=== PATIENT | male | born 1945 | race Caucasian/White ===

== ENCOUNTER → 2018-01-23 | Outpatient (CLI) | payer MEDICARE, BC ==
--- NOTE | 2018-01-23 15:40 | XR ---
Left hip HISTORY: Status post left hip arthroplasty 2 views of the left hip on 3 images correlated prior exam 12/02/2015 There is been interval change in patient's left hip arthroplasty. Heterotopic new bone is present abo ut the left hip. There is anatomic alignment. No fracture or dislocation. IMPRESSION: Postop follow-up
== END ==
LOC: RADXRYALE 13:41
PROVIDERS: ATTEND Orthopaedic Surgery
DX: T84.52XD Infection and inflammatory reaction due to internal left hip prosthesis, subsequent encounter (principal); Z98.890 Other specified postprocedural states
CPT/HCPCS: 73502

== ENCOUNTER → 2018-07-17 | Outpatient (CLI) | payer MEDICARE, BC ==
--- NOTE | 2018-07-18 09:10 | XR ---
EXAMINATION TYPE: XR lumbosacral spine min 4V DATE OF EXAM: 07/17/2018 COMPARISON: None HISTORY: Low back pain TECHNIQUE: Five-view lumbar spine FINDINGS: There 5 lumbar-type vertebral bodies. The pedicles are intact. Scoliosis is present. Degene rative disc changes are present. Some spurring is noted. Mild facet degenerative changes present diff usely. There is loss of disc height L2-3 through L4-5. Mild narrowing of the disc height at L1-2 is present. The L5-S1 disc height appears preserved. Vacuum disc phenomenon is present L3-4 L4-5. IMPRESSION: 1. Degenerative disc changes within the mid lumbar spine with loss of disc height in some vacuum dis c phenomenon. 2. Mild diffuse facet degenerative changes. 3. Scoliosis. 4. Spondylosis.
--- NOTE | 2018-07-18 09:12 | XR ---
EXAMINATION TYPE: XR Hip Bilateral and AP pelvis DATE OF EXAM: 07/17/2018 COMPARISON: 01/23/2018 left hip HISTORY: Low back pain left hip pain TECHNIQUE: AP pelvis is obtained. Bilateral hips are examined in 2 projections each. FINDINGS: There is a left hip prosthesis. No acute fractures evident. Right femoral head articulates with the acetabulum. Subchondral cyst may be within the superior femor al neck. Mild narrowing of the joint space is present. Pelvis appears intact. IMPRESSION: 1. No acute osseous abnormality. 2. Mild degenerative changes right hip joint space.
== END | disposition home or self-care (01) ==
LOC: RADXRYALE 15:57
PROVIDERS: ATTEND Orthopaedic Surgery
DX: M51.36 Other intervertebral disc degeneration, lumbar region (principal); M47.817 Spondylosis without myelopathy or radiculopathy, lumbosacral region; M41.86 Other forms of scoliosis, lumbar region; M16.11 Unilateral primary osteoarthritis, right hip
CPT/HCPCS: 72110; 73521

== ENCOUNTER → 2019-02-18 | Outpatient (CLI) | payer MEDICARE, BC ==
--- NOTE | 2019-02-19 07:42 | US ---
EXAMINATION TYPE: US kidneys/renal and bladder DATE OF EXAM: 02/18/2019 COMPARISON: MRI lumbar spine 2010. CLINICAL HISTORY: R31.9 Hematuria. Hematuria. EXAM MEASUREMENTS: Right Kidney: 10.0 x 5.3 x 4.5 cm Left Kidney: 9.4 x 5.1 x 5.4 cm Limited due to body habitus. Right Kidney: No hydronephrosis or masses seen Left Kidney: Hypoechoic area seen medially measurin.7 x 2.1 x 1.8 cm. Bladder: Appears to be anechoic. Bilateral Jets seen: No Exam suboptimal due to patient's large body habitus. No hydronephrosis identified bilaterally. 1.8 cm round hypoechoic to anechoic lesion upper pole left kidney with increased through transmission favor simple thin-walled cyst. Scanning of right kidney shows adjacent heterogeneous hyperechoic liver. Bl adder not greatly distended thus suboptimally evaluated. IMPRESSION: Suboptimal study without cause of hematuria identified. Follow-up multiphase contrast-enh anced CT is advised if symptoms persist.
== END | disposition home or self-care (01) ==
LOC: RADUSMAIN 18:01
PROVIDERS: ATTEND Urology
DX: R31.9 Hematuria, unspecified (principal)
CPT/HCPCS: 76770

== ENCOUNTER → 2019-02-27 | Outpatient (CLI) | payer MEDICARE, BC ==
--- NOTE | 2019-02-27 18:28 | CT ---
EXAMINATION TYPE: CT abdomen pelvis wo con DATE OF EXAM: 02/27/2019 COMPARISON: Ultrasound 02/18/2019 HISTORY: hematuria X [address] DLP: 1114.3 mGycm Automated exposure control for dose reduction was used. TECHNIQUE: Helical acquisition of images was performed from the lung bases through the pelvis. FINDINGS: LUNG BASES: The heart is prominent in size. There are basilar subsegmental changes typical atelectasi s. Interlobular septal thickening suggestive of chronic interstitial lung disease such as fibrosis. I ncidental note is made of a calcified granuloma in the right lower lobe axial image 20. Calcified lym ph node in the periaortic region on image 21. LIVER/GB: No significant abnormality is appreciated. PANCREAS: No significant abnormality is seen. SPLEEN: Splenic granuloma noted. ADRENALS: No significant abnormality is seen. KIDNEYS: No renal calcifications or hydronephrosis. There is a 2.2 cm hypodense lesion involving the anterior mid cortex of the left kidney measuring 5 Hounsfield units compatible with a simple Bosniak classification 1 cyst. There is lobulation to the kidneys may suggest a degree of chronic underlying medical renal disease. The bladder is homogeneous. No calcifications or definitive wall thickening by noncontrast technique. ADENOPATHY: None visualized. OSSEOUS STRUCTURES: Is postsurgical change involving the left hip which does result in severe artifa ct limits portions of evaluation of the pelvis. Severe multilevel degenerative disc disease with vacu um disc is noted. Soft tissue ossification adjacent to the iliac bone likely postsurgical. Could been the basis of remote trauma. BOWEL: Changes of diverticulosis with no CT evidence of diverticulitis. Bowel gas pattern nonspecifi c with no obstruction. OTHER: Aorta of normal caliber. Fat-containing bilateral inguinal hernias noted. Mild atherosclerotic change of the vasculature. Suspect bilateral hydroceles within the scrotal sac. Incidental note is m shemar of asymmetric atrophy of the left psoas muscle. IMPRESSION: 1. No hydronephrosis or nephrolithiasis. 2. Benign-appearing simple cyst Bosniak classification 1 left kidney measuring 2.2 cm and 5 Hounsfiel d units. 3. Correlate for chronic interstitial lung disease. 4. Diverticulosis. 5. Bilateral hydroceles within the scrotal sac.
== END | disposition home or self-care (01) ==
LOC: RADCTMAIN 16:46
PROVIDERS: ATTEND Urology
DX: R31.9 Hematuria, unspecified (principal); N28.1 Cyst of kidney, acquired; K57.90 Diverticulosis of intestine, part unspecified, without perforation or abscess without bleeding
CPT/HCPCS: 74176

== ENCOUNTER 2019-09-25 09:17 | Emergency (ER) | payer MEDICARE, BC ==
[2019-09-25 09:35] VITALS: RESP 18; TEMP 98.2
[2019-09-25] MEDS ORDERED: LISINOPRIL 10 MG TAB PO STA (09:58)
[2019-09-25] MEDS ORDERED: METOPROLOL SUCCINATE (ER) 25 MG TAB.ER.24H PO STA (09:58)
[2019-09-25] MEDS ORDERED: OXYMETAZOLINE 0.05% NASL SPRAY 1 SPRAY BOTTLE NASAL STA (09:59)
--- NOTE | 2019-09-25 10:07 | ED ---
General Adult HPI - General Chief complaint: ENT Stated complaint: Nose bleed Time Seen by Provider: 09/25/19 09:37 Source: patient, RN notes reviewed Mode of arrival: ambulatory Limitations: no limitations - History of Present Illness Initial comments: 74-year-old male presents to the emergency department for a nosebleed. Patient reports that this nosebleed started approximately 4 AM this morning states that he could not get it to stop so he called the ambulance. States is soon as he called EMS the bleeding ceased. Patient denies any lightheadedness. Patient does take Xarelto, denies taking Coumadin. Patient states that he did not take his morning blood pressure medications today. He takes lisinopril and metoprolol in the morning.Patient has no other complaints at this time including shortness of breath, chest pain, abdominal pain, nausea or vomiting, headache, or visual changes. - Related Data Home Medications Medication Instructions Recorded Confirmed Cetirizine HCl [Zyrtec] 10 mg PO HS 09/25/19 09/25/19 DULoxetine HCL [Cymbalta] 30 mg PO HS 09/25/19 09/25/19 Diltiazem HCl [Diltiazem HCl 24Hr 240 mg PO DAILY 09/25/19 09/25/19 ER] Ginkgo Biloba [place] Extract [Ginkgo] 60 mg PO DAILY 09/25/19 09/25/19 Lisinopril [Zestril] 10 mg PO DAILY 09/25/19 09/25/19 Magnesium Oxide 400 mg PO W/BRKFST 09/25/19 09/25/19 Metoprolol Tartrate [Lopressor] 25 mg PO BID 09/25/19 09/25/19 Pantoprazole Sodium [Protonix] 40 mg PO HS 09/25/19 09/25/19 Rivaroxaban [Xarelto] 20 mg PO HS 09/25/19 09/25/19 Previous Rx's Medication Instructions Recorded Ferrous Sulfate [Iron (65 MG 325 mg PO DAILY #30 tab 09/08/14 Elemental)] Allergies Allergy/AdvReac Type Severity Reaction Status Date / Time No Known Allergies Allergy Verified 09/25/19 10:36 Review of Systems ROS Statement: Those systems with pertinent positive or pertinent negative responses have been documented in the HPI. ROS Other: All systems not noted in ROS Statement are negative. Past Medical History Past Medical History: Atrial Fibrillation, Hypertension, Osteoarthritis (OA) Additional Past Medical History / Comment(s): 11/09/14 I&D L hip. Other HX: Seroma L hip, chronic backpain, neuropathy bilateral feet, chronic bradycardia, gout, GLAUCOMA bilaterally History of Any Multi-Drug Resistant Organisms: None Reported Past Surgical History: Joint Replacement, Orthopedic Surgery Additional Past Surgical History / Comment(s): 11/09/14 I&D L hip. Other SX: 10/22/14 I&D L hip, TOTAL LEFT HIP ARTHOPLASTY 08/17/14, LEFT HIP REVISION 09/03/14 Past Anesthesia/Blood Transfusion Reactions: No Reported Reaction Additional Past Anesthesia/Blood Transfusion Reaction / Comment(s): HAS ONLY HAD IV SEDATION. Past Psychological History: Anxiety Smoking Status: Former smoker Past Alcohol Use History: None Reported Past Drug Use History: None Reported - Past Family History Father Family Medical History: CVA/TIA General Exam Limitations: no limitations General appearance: alert, in no apparent distress Head exam: Present: atraumatic, normocephalic, normal inspection Eye exam: Present: normal appearance, PERRL, EOMI. Absent: scleral icterus, conjunctival injection, periorbital swelling ENT exam: Present: normal exam, normal oropharynx (Bleeding has ceased at this time), mucous membranes moist, TM's normal bilaterally, normal external ear exam Neck exam: Present: normal inspection, full ROM. Absent: tenderness, meningismus, lymphadenopathy Respiratory exam: Present: normal lung sounds bilaterally. Absent: respiratory distress, wheezes, rales, rhonchi, stridor Cardiovascular Exam: Present: regular rate, normal rhythm, normal heart sounds. Absent: systolic murmur, diastolic murmur, rubs, gallop, clicks Neurological exam: Present: alert Course Vital Signs 09/25/19 09:30 Temperature 98.2 F Pulse Rate 72 Respiratory 18 Rate Blood Pressure 158/106 O2 Sat by Pulse 98 Oximetry Medical Decision Making - Medical Decision Making Vitals are stable. Patient's eye with hypertensive blood pressure 158/106. He did not take his morning medications for blood pressure. He was therefore given his morning metoprolol and lisinopril upon arrival. Epistaxis is controlled. There is no bleeding. Afrin was applied and nose was clamped for 15 minutes to prevent any rebleeding. Patient ambulated without any new bleeding. Patient will follow-up with ENT. He will return here for any worsening symptoms. He also follow up with his doctor for blood pressure. Disposition Clinical Impression: Epistaxis Disposition: HOME SELF-CARE Condition: Good Instructions (If sedation given, give patient instructions): Nosebleed (ED) Additional Instructions: Take your medications as directed for blood pressure. You already received your morning lisinopril and metoprolol. If bleeding starts again spray 2 sprays of Afrin in each nostril and clamp for 15 minutes. If this does not stop the bleeding repeat this process once more. If bleeding will still not stop then return to the emergency room. Otherwise follow-up with ENT. Is patient prescribed a controlled substance at d/c from ED?: No Referrals: Ileana Alatorre MD [Primary Care Provider] - 1-2 days Aryan Kahn MD [STAFF PHYSICIAN] - 1-2 days Time of Disposition: 10:47
[2019-09-25 11:07] VITALS: BP 180/99; PULSE 73
== END 2019-09-25 11:07 | disposition home or self-care (01) ==
LOC: EC 09:17
DX: R04.0 Epistaxis (principal); I10 Essential (primary) hypertension; I48.91 Unspecified atrial fibrillation; M19.90 Unspecified osteoarthritis, unspecified site; H40.9 Unspecified glaucoma; F41.9 Anxiety disorder, unspecified; Z79.899 Other long term (current) drug therapy; Z87.891 Personal history of nicotine dependence; Z96.652 Presence of left artificial knee joint
CPT/HCPCS: 99283

== ENCOUNTER 2023-07-30 18:59 | Inpatient (IN) | payer MEDICARE, OTHER ==
[2023-07-30] MEDS: SODIUM CHLORIDE 0.9% 500 ML 500 ML IV STA (21:13)
[2023-07-30 21:24] LABS: Basophils % (A) 0 %; Eosinophils # (A) 0.3 k/uL (0-0.7); Eosinophils % (A) 4 %; HCT 40.2 % (39.0-53.0); Lymphocytes # (A) 0.7 k/uL (1.0-4.8); Lymphocytes % (A) 9 %; MCH 29.9 pg (25.0-35.0); MCHC 32.4 g/dL (31.0-37.0); MCV 92.3 fL (80.0-100.0); Mean Platelet Volume 7.5; Monocytes # (A) 0.4 k/uL (0-1.0); Monocytes % (A) 5 %; Neutrophils # (A) 6.5 k/uL (1.3-7.7); Neutrophils % (A) 80 %; Platelet Count 295 k/uL (150-450); RBC 4.35 m/uL (4.30-5.90); RDW 14.5 % (11.5-15.5); WBC 8.2 k/uL (3.8-10.6)
[2023-07-30 21:32] LABS: INR 1.5 (<1.2); Partial Thromboplastin Time 35.3 sec (22.0-30.0); Prothrombin Time 15.6 sec (10.0-12.5)
[2023-07-30 21:45] LABS: ALT 18 U/L (4-49); AST 34 U/L (17-59); African American GFR (CKD) 64 (>60 ml/min/1.73 sqM); Albumin 3.3 g/dL (3.5-5.0); Alkaline Phosphatase 125 U/L (38-126); Anion Gap 8 mmol/L; Blood Urea Nitrogen 20 mg/dL (9-20); Carbon Dioxide 28 mmol/L (22-30); Chloride 100 mmol/L (98-107); Glucose 83 mg/dL (74-99); Magnesium 1.2 mg/dL (1.6-2.3); Non-African American GFR(CKD) 55 (>60 ml/min/1.73 sqM); Sodium 136 mmol/L (137-145); Total Bilirubin 0.6 mg/dL (0.2-1.3); Total Protein 7.5 g/dL (6.3-8.2)
[2023-07-30 21:51] LABS: Vancomycin,Random 36.7 ug/mL
--- NOTE | 2023-07-30 22:19 | ED ---
General Adult HPI - General Chief complaint: Recheck/Abnormal Lab/Rx Stated complaint: Abn labs-toxic levels Time Seen by Provider: 07/30/23 20:28 Source: patient, RN notes reviewed, old records reviewed Mode of arrival: wheelchair Limitations: no limitations - History of Present Illness Initial comments: 78-year-old male presenting for evaluation of weakness. Patient had recent admission to outside hospital for treatment of pneumonia as well as ulcer on the right foot which was diagnosed as osteomyelitis. He was placed onto IV antibiotics and has been home for approximately 1 week. He is currently on Vanco and daughter believes Invanz. Daughter has noted increased weakness and was told by home care nurse that his vancomycin level was elevated. No fever. Cough and dyspnea have improved. No abdominal pain or chest pain. - Related Data Home Medications Medication Instructions Recorded Confirmed DULoxetine HCL [Cymbalta] 30 mg PO HS 09/25/19 07/30/23 Rivaroxaban [Xarelto] 20 mg PO HS 09/25/19 07/30/23 Albuterol Inhaler [Ventolin Hfa 2 puff INHALATION RT-Q6H PRN 07/30/23 07/30/23 Inhaler] Albuterol Nebulized [Ventolin 2.5 mg INHALATION RT-Q6H PRN 07/30/23 07/30/23 Nebulized] Atorvastatin [Lipitor] 20 mg PO HS 07/30/23 07/30/23 Dakin's Solution 0.25% 1 applic TOPICAL DAILY 07/30/23 07/30/23 Ertapenem [INVanz] 1 dose IVPB DIRECTED 07/30/23 07/30/23 L.rhamnosus/B.animalis(Lactis) 1 cap PO DAILY 07/30/23 07/30/23 [[facility] 3B Cfu Cp] Levothyroxine Sodium [Synthroid] 50 mcg PO DAILY 07/30/23 07/30/23 Metoprolol Succinate (ER) [Toprol 50 mg PO BID 07/30/23 07/30/23 Xl] Pantoprazole [Protonix] 40 mg PO DAILY 07/30/23 07/30/23 Triamcinolone 0.1% Cream [Kenalog 1 applicatio TOPICAL DAILY PRN 07/30/23 07/30/23 0.1% Cream] Vancomycin 1 dose IVPB DIRECTED 07/30/23 07/30/23 allopurinoL [Zyloprim] 100 mg PO DAILY 07/30/23 07/30/23 amLODIPine [Norvasc] 5 mg PO DAILY 07/30/23 07/30/23 dilTIAZem HCL [dilTIAZem HCL 24Hr 120 mg PO DAILY 07/30/23 07/30/23 ER (CD)] diphenhydrAMINE [Benadryl] 25 mg PO Q6H PRN 07/30/23 07/30/23 lisinopriL [Zestril] 5 mg PO HS 07/30/23 07/30/23 oxyCODONE HCL [oxyCODONE HCL (IR)] 20 mg PO TID 07/30/23 07/30/23 Previous Rx's Medication Instructions Recorded Ferrous Sulfate [Iron (65 MG 325 mg PO DAILY #30 tab 09/08/14 Elemental)] Allergies Allergy/AdvReac Type Severity Reaction Status Date / Time No Known Allergies Allergy Verified 07/30/23 19:12 Review of Systems ROS Statement: Those systems with pertinent positive or pertinent negative responses have been documented in the HPI. ROS Other: All systems not noted in ROS Statement are negative. Past Medical History Past Medical History: Atrial Fibrillation, Hypertension, Osteoarthritis (OA) Additional Past Medical History / Comment(s): 11/09/14 I&D L hip. Other HX: Seroma L hip, chronic backpain, neuropathy bilateral feet, chronic bradycardia, gout, GLAUCOMA bilaterally History of Any Multi-Drug Resistant Organisms: None Reported Past Surgical History: Joint Replacement, Orthopedic Surgery Additional Past Surgical History / Comment(s): 11/09/14 I&D L hip. Other SX: 10/22/14 I&D L hip, TOTAL LEFT HIP ARTHOPLASTY 08/17/14, LEFT HIP REVISION 09/03/14 Past Anesthesia/Blood Transfusion Reactions: No Reported Reaction Additional Past Anesthesia/Blood Transfusion Reaction / Comment(s): HAS ONLY HAD IV SEDATION. Past Psychological History: Anxiety Past Alcohol Use History: None Reported Past Drug Use History: None Reported - Past Family History Father Family Medical History: CVA/TIA General Exam Limitations: no limitations General appearance: alert, in no apparent distress Head exam: Present: atraumatic, normocephalic Eye exam: Present: normal appearance, PERRL Neck exam: Present: normal inspection. Absent: tenderness, meningismus Respiratory exam: Present: normal lung sounds bilaterally. Absent: respiratory distress, wheezes Cardiovascular Exam: Present: regular rate, irregular rhythm GI/Abdominal exam: Present: soft. Absent: distended, tenderness Extremities exam: Present: normal capillary refill, other (Ulceration to the sole of the right foot without surrounding erythema, no purulence) Neurological exam: Present: alert, oriented X3 Psychiatric exam: Present: normal affect, normal mood Skin exam: Present: warm, dry, intact. Absent: cyanosis, diaphoretic Course Vital Signs 07/30/23 19:10 Temperature 98.7 F Pulse Rate 71 Respiratory 16 Rate Blood Pressure 134/67 O2 Sat by Pulse 97 Oximetry Medical Decision Making - Medical Decision Making Was pt. sent in by a medical professional or institution (, PA, T[employer], urgent care, hospital, or shelter...) When possible be specific @ -No Did you speak to anyone other than the patient for history (EMS, parent, family, police, friend...)? What history was obtained from this source @ -Patient's daughter gives detailed history. Did you review nursing and triage notes (agree or disagree)? Why? @ -I reviewed and agree with nursing and triage notes Were old charts reviewed (outside hosp., previous admission, EMS record, old EKG, old radiological studies, urgent care reports/EKG's, shelter records)? Report findings @ -No old charts were reviewed Differential Weakness: Hypoglycemia, shock, sepsis, hyponatremia, anemia, infection, AL, ETOH, adverse medicine reaction, overdose, stroke, this is not meant to be an all-inclusive list. EKG interpreted by me (3pts min.). @EKG: Atrial fibrillation rate of 77, QRS duration 99, QTc [address] segment elevation. X-rays interpreted by me (1pt min.). @ -Chest x-ray showing residual left lower lobe infiltrate, recent diagnosis of pneumonia CT interpreted by me (1pt min.). @ -None done U/S interpreted by me (1pt. min.). @ -None done What testing was considered but not performed or refused? (CT, X-rays, U/S, labs)? Why? @ -None What meds were considered but not given or refused? Why? @ -None Did you discuss the management of the patient with other professionals (professionals i.e. , PA, T[employer], lab, RT, psych nurse, social services designee, composing machine operator/tender, teacher, loans officer, rn case manager hospice)? Give summary @EMH Was smoking cessation discussed for >3mins.? @ -No Was critical care preformed (if so, how long)? @ -No Were there social determinants of health that impacted care today? How? (Silvana elessness, low income, unemployed, alcoholism, drug addiction, transportation, low edu. Level, literacy, decrease access to med. care, skilled nursing, rehab)? @ -No Was there de-escalation of care discussed even if they declined (Discuss DNR or withdrawal of care, Hospice)? DNR status @ -No What co-morbidities impacted this encounter? (DM, HTN, Smoking, COPD, CAD, Cancer, CVA, ARF, Chemo, Hep., AIDS, mental health diagnosis, sleep apnea, morbid obesity)? @ -[Chronic kidney infection, nonhealing wound right foot, atrial fibrillation Was patient admitted / discharged? Hospital course, mention meds given and route, prescriptions, significant lab abnormalities, going to OR and other pertinent info. @ -78-year-old male with weakness. Currently being treated for osteomyelitis. The ulcer on his right foot does not appear infected currently. The daughter is requesting second opinion from infectious disease regarding the diagnosis of osteomyelitis. The patient has no specific complaints himself. He has a normal white blood cell count, stable hemoglobin, normal CMP, negative lactic acid, random vancomycin level is below 40. Urinalysis pending. Patient given IV fluids and does have some improvement. He will be monitored overnight for dehydration and reevaluation. Infectious disease placed on consult. Undiagnosed new problem with uncertain prognosis? @ -[No Drug Therapy requiring intensive monitoring for toxicity (Heparin, Nitro, Insulin, Cardizem)? @ -No Were any procedures done? @ -No Diagnosis/symptom? @ -[Weakness, dehydration, hypomagnesemia Acute, or Chronic, or Acute on Chronic? @Acute Uncomplicated (without systemic symptoms) or Complicated (systemic symptoms)? @ -Default Side effects of treatment? @ -No Exacerbation, Progression, or Severe Exacerbation? @ -No Poses a threat to life or bodily function? How? (Chest pain, [place], AL, pneumonia, PE, COPD, DKA, ARF, appy, cholecystitis, CVA, Diverticulitis, Homicidal, Suicidal, threat to staff... and all critical care pts) @ -[Low risk at this time - Lab Data Result diagrams: 07/30/23 21:08 07/30/23 21:08 Lab Results 07/30/23 07/30/23 07/30/23 Range/Units 21:08 21:08 21:08 WBC 8.2 (3.8-10.6) k/uL RBC 4.35 (4.30-5.90) m/uL Hgb 13.0 (13.0-17.5) gm/dL Hct 40.2 (39.0-53.0) % MCV 92.3 (80.0-100.0) fL MCH 29.9 (25.0-35.0) pg MCHC 32.4 (31.0-37.0) g/dL RDW 14.5 (11.5-15.5) % Plt Count 295 (150-450) k/uL MPV 7.5 Neutrophils % 80 % Lymphocytes % 9 % Monocytes % 5 % Eosinophils % 4 % Basophils % 0 % Neutrophils # 6.5 (1.3-7.7) k/uL Lymphocytes # 0.7 L (1.0-4.8) k/uL Monocytes # 0.4 (0-1.0) k/uL Eosinophils # 0.3 (0-0.7) k/uL Basophils # 0.0 (0-0.2) k/uL PT 15.6 H (10.0-12.5) sec INR 1.5 H (<1.2) APTT 35.3 H (22.0-30.0) sec Sodium 136 L (137-145) mmol/L Potassium 4.0 (3.5-5.1) mmol/L Chloride 100 (98-107) mmol/L Carbon Dioxide 28 (22-30) mmol/L Anion Gap 8 mmol/L BUN 20 (9-20) mg/dL Creatinine 1.24 (0.66-1.25) mg/dL Est GFR (CKD-EPI)AfAm 64 (>60 ml/min/1.73 sqM) Est GFR (CKD-EPI)NonAf 55 (>60 ml/min/1.73 sqM) Glucose 83 (74-99) mg/dL Plasma Lactic Acid Alonzo (0.7-2.0) mmol/L Calcium 8.0 L (8.4-10.2) mg/dL Magnesium 1.2 L (1.6-2.3) mg/dL Total Bilirubin 0.6 (0.2-1.3) mg/dL AST 34 (17-59) U/L ALT 18 (4-49) U/L Alkaline Phosphatase 125 (38-126) U/L Troponin I (0.000-0.034) ng/mL Total Protein 7.5 (6.3-8.2) g/dL Albumin 3.3 L (3.5-5.0) g/dL Random Vancomycin 36.7 ug/mL 07/30/23 07/30/23 Range/Units 21:08 21:08 WBC (3.8-10.6) k/uL RBC (4.30-5.90) m/uL Hgb (13.0-17.5) gm/dL Hct (39.0-53.0) % MCV (80.0-100.0) fL MCH (25.0-35.0) pg MCHC (31.0-37.0) g/dL RDW (11.5-15.5) % Plt Count (150-450) k/uL MPV Neutrophils % % Lymphocytes % % Monocytes % % Eosinophils % % Basophils % % Neutrophils # (1.3-7.7) k/uL Lymphocytes # (1.0-4.8) k/uL Monocytes # (0-1.0) k/uL Eosinophils # (0-0.7) k/uL Basophils # (0-0.2) k/uL PT (10.0-12.5) sec INR (<1.2) APTT (22.0-30.0) sec Sodium (137-145) mmol/L Potassium (3.5-5.1) mmol/L Chloride (98-107) mmol/L Carbon Dioxide (22-30) mmol/L Anion Gap mmol/L BUN (9-20) mg/dL Creatinine (0.66-1.25) mg/dL Est GFR (CKD-EPI)AfAm (>60 ml/min/1.73 sqM) Est GFR (CKD-EPI)NonAf (>60 ml/min/1.73 sqM) Glucose (74-99) mg/dL Plasma Lactic Acid Alonzo 1.2 (0.7-2.0) mmol/L Calcium (8.4-10.2) mg/dL Magnesium (1.6-2.3) mg/dL Total Bilirubin (0.2-1.3) mg/dL AST (17-59) U/L ALT (4-49) U/L Alkaline Phosphatase (38-126) U/L Troponin I <0.012 (0.000-0.034) ng/mL Total Protein (6.3-8.2) g/dL Albumin (3.5-5.0) g/dL Random Vancomycin ug/mL Disposition Clinical Impression: Weakness, Dehydration, Hypomagnesemia Disposition: ADMITTED IP TO THIS HOSP Condition: Stable Is patient prescribed a controlled substance at d/c from ED?: No Referrals: Ileana Alatorre MD [Primary Care Provider] - 1-2 days Time of Disposition: 22:32
[2023-07-30] MEDS ORDERED: ACETAMINOPHEN TAB 325 MG TAB PO PRN (22:27)
[2023-07-30] MEDS ORDERED: NALOXONE 0.4 MG/ML 1 ML VIAL IV PRN (22:27)
--- NOTE | 2023-07-30 22:35 | XR ---
EXAMINATION TYPE: XR chest 2V DATE OF EXAM: 07/30/2023 8:55 PM CLINICAL INDICATION:Male, 78 years old with history of Weakness; [facility] COMPARISON: None TECHNIQUE: XR chest 2V. Frontal and lateral views of the chest.. FINDINGS: Exam limited by patient body habitus and underpenetration. Cardiomediastinal silhouette appears enlarged. There is mild tracheal bowing towards the right. Lung volumes are low, with associated mild bibasilar atelectasis and accentuation of the lung marking s nevertheless mild central vascular congestion is suggested. Additionally, there may be superimposed airspace disease in the left mid to lower lung zones. Left costophrenic angle is not well-defined. N o pneumothorax evident. Osseous structures show no acute abnormality. Mild/moderate diffuse degenerative changes. Old fractur e deformity of the mid to distal left clavicle. IMPRESSION: 1. Cardiomegaly with low lung volumes and likely mild pulmonary vascular congestion. 2. Additional airspace disease suggested in the left mid to lower lung zones, with suspected small l eft pleural effusion. Follow-up is advised.
[2023-07-30] MEDS: MAGNESIUM SULFATE-D5W PMX 1 GM in DEXTROSE/WATER 1 100ML.BAG IVPB SCH (22:41)
[2023-07-30] MEDS: SODIUM CHLORIDE 0.9% 1,000 ML IV SCH (23:17)
[2023-07-31 01:00] LABS: Appearance,Urine Clear (Clear); Bilirubin,Urine Negative (Negative); Blood,Urine Negative (Negative); Color,Urine Colorless; Glucose,Urine (UA) Negative (Negative); Ketones,Urine Negative (Negative); Leukocyte Esterase,Urine Trace (Negative); Nitrite,Urine Negative (Negative); Protein,Urine Negative (Negative); RBC,Urine 1 /hpf (0-5); Specific Gravity,Urine 1.008 (1.001-1.035); Squamous Epithelial Cell,Urine <1 /hpf (0-4); Urobilinogen,Urine <2.0 mg/dL (<2.0); WBC,Urine 4 /hpf (0-5)
[2023-07-31] MEDS ORDERED: ALBUTEROL NEBULIZED 2.5 MG/3 ML INHALATION PRN (10:32)
[2023-07-31] MEDS: LEVOTHYROXINE 50 MCG TAB PO SCH (11:13)
[2023-07-31] MEDS: MAGNESIUM SULFATE-D5W PMX 1 GM in DEXTROSE/WATER 1 100ML.BAG IVPB SCH (11:13)
[2023-07-31] MEDS: allopurinoL 100 MG TAB PO SCH (11:13)
[2023-07-31] MEDS: PANTOPRAZOLE 40 MG TABLET PO SCH (11:13)
[2023-07-31] MEDS: DILTIAZEM CD 120 MG CAP.ER.24H PO SCH (11:13)
[2023-07-31] MEDS: METOPROLOL SUCCINATE (ER) 50 MG TAB.ER.24H PO SCH (11:13)
[2023-07-31] MEDS ORDERED: VANCOMYCIN IV PER PHARMACY 1 EACH MISC MISCELLANE PRN ×2 (16:49→18:14)
[2023-07-31 16:54] LABS: Magnesium 2.1 mg/dL (1.6-2.3)
--- NOTE | 2023-07-31 17:09 | CT ---
EXAMINATION TYPE: CT brain wo con CT DLP: 1236.4 mGycm, Automated exposure control for dose reduction was used. DATE OF EXAM: 07/31/2023 4:41 PM COMPARISON: None. CLINICAL INDICATION:Male, 78 years old with history of Altered mentation, AMS TECHNIQUE: Brain: Axial CT images of the brain were obtained with coronal and sagittal reformats created and rev iewed. Contrast used: None. Oral contrast used: None. FINDINGS: Brain: Extra-axial spaces: No abnormal extra-axial fluid collections. Ventricular system: Dilatation in proportion to cerebral atrophy. Cerebral parenchyma: Cerebral atrophy. No acute intraparenchymal hemorrhage or mass effect. The aparicio -white junction is well differentiated. Scattered hypoattenuating areas are seen within the white mat ter. Cerebellum: Unremarkable. Mass effect: No evidence of midline shift. Intracranial vasculature: Atherosclerotic calcifications of the intracranial vessels. Soft tissues: Normal. Calvarium/osseous structures: No depressed skull fracture. Paranasal sinuses and mastoid air cells: Mild scattered paranasal sinus disease most pronounced in th e right maxillary sinus. Visualized orbits: Orbital contents are intact. Right globe scleral buckle. Bilaterally aphakia. IMPRESSION: 1. No acute intracranial process. 2. Nonspecific white matter changes, likely secondary to chronic small vessel ischemic disease.
[2023-07-31] MEDS: CEFEPIME 2 GM in SODIUM CHLORIDE 0.9% 100 ML IVPB SCH (17:27)
[2023-07-31] MEDS: VANCOMYCIN 1,750 MG in SODIUM CHLORIDE 0.9% 500 ML 500 ML IVPB SCH (20:26)
[2023-07-31] MEDS: lisinopriL 5 MG TAB PO SCH (21:39)
[2023-07-31] MEDS: RIVAROXABAN 20 MG TAB PO SCH (21:39)
[2023-07-31] MEDS: ATORVASTATIN 20 MG TAB PO SCH (21:39)
[2023-07-31] MEDS: DULoxetine HCL 30 MG CAPSULE.DR PO SCH (21:40)
--- NOTE | 2023-07-31 23:00 | P.CONS ---
History of Present Illness - Reason for Consult Consult date: 07/31/23 - History of Present Illness Patient is a 78-year-old male with a past medical history significant for hypertension osteoarthritis atrial fibrillation in this patient who did have a nonhealing wound on the plantar aspect of the right foot and apparently he was recently diagnosed with osteomyelitis at [facility] and the patient has been treated with IV vancomycin and Invanz patient now presenting to [facility] for evaluation of weakness with a symptom has been getting worse for the last few days patient also complaining of cough which has been mild to moderate intensity but not bring up any sputum and some shortness of breath patient denies any nausea vomiting abdominal pain or diarrhea and denies having any pain to the lower extremity or any foul-smelling drainage patient on pre sentation to the hospital was afebrile and no fever have recorded subsequently patient was not tachycardic hypotensive or hypoxic and no need for supplemental oxygen white count is 8.2 creatinine is 1.24 liver enzymes are normal urine has been negative vancomycin random was 36.7 patient has been admitted to the hospital infectious disease was consulted for further management of antibiotic therapy concerning for very pneumonia as the patient did have a chest x-ray with cardiomegaly low lung volumes with mild pulmonary vascular congestion airspace disease in the left mid to lower lung and also concerning for the right foot osteomyelitis Past Medical History Past Medical History: Atrial Fibrillation, Hypertension, Osteoarthritis (OA) Additional Past Medical History / Comment(s): 11/09/14 I&D L hip. Other HX: Seroma L hip, chronic backpain, neuropathy bilateral feet, chronic bradycardia, gout, GLAUCOMA bilaterally History of Any Multi-Drug Resistant Organisms: None Reported Past Surgical History: Joint Replacement, Orthopedic Surgery Additional Past Surgical History / Comment(s): 11/09/14 I&D L hip. Other SX: 10/22/14 I&D L hip, TOTAL LEFT HIP ARTHOPLASTY 08/17/14, LEFT HIP REVISION 09/03/14 Past Anesthesia/Blood Transfusion Reactions: No Reported Reaction Additional Past Anesthesia/Blood Transfusion Reaction / Comm: HAS ONLY HAD IV SEDATION. Past Psychological History: Anxiety Additional Psychological History / Comment(s): VERY ANXIOUS ABOUT GETTING A PRIVATE ROOM, SPOUSE STATES HE WILL WALK OUT IF HE CAN'T HAVE A PRIVATE ROOM. Pt lives at home with spouse. He is being seen by [facility] for his L hip wound and. R foot 2nd and 3rd toe wounds daily. PTiscoming into the home. He is ambulating with a cane now. He has a raised toilet seat. The family home [place] where they have cattle. His is caring for them while he has been somewhat disabled from his surgeries. He use to work an service electrician. Denied experience her extensive travels. Animal exposure is from the heard only at this time. Was a tobacco smoker but stopped in early without significant alcohol or recreational drug use. Smoking Status: Former smoker Past Alcohol Use History: None Reported Past Drug Use History: None Reported - Past Family History Father Family Medical History: CVA/TIA Medications and Allergies Home Medications Medication Instructions Recorded Confirmed Type Ferrous Sulfate [Iron (65 MG 325 mg PO DAILY #30 tab 09/08/14 07/30/23 Rx Elemental)] DULoxetine HCL [Cymbalta] 30 mg PO HS 09/25/19 07/30/23 History Rivaroxaban [Xarelto] 20 mg PO HS 09/25/19 07/30/23 History Albuterol Inhaler [Ventolin Hfa 2 puff INHALATION RT-Q6H PRN 07/30/23 07/30/23 History Inhaler] Albuterol Nebulized [Ventolin 2.5 mg INHALATION RT-Q6H PRN 07/30/23 07/30/23 History Nebulized] Atorvastatin [Lipitor] 20 mg PO HS 07/30/23 07/30/23 History Dakin's Solution 0.25% 1 applic TOPICAL DAILY 07/30/23 07/30/23 History Ertapenem [INVanz] 1 gm IV DAILY 07/30/23 07/31/23 History L.rhamnosus/B.animalis(Lactis) 1 cap PO DAILY 07/30/23 07/30/23 History [Ramirez' Colon [facility] 3B Cfu Cp] Levothyroxine Sodium [Synthroid] 50 mcg PO DAILY 07/30/23 07/30/23 History Metoprolol Succinate (ER) [Toprol 50 mg PO BID 07/30/23 07/30/23 History Xl] Pantoprazole [Protonix] 40 mg PO DAILY 07/30/23 07/30/23 History Triamcinolone 0.1% Cream [Kenalog 1 applicatio TOPICAL DAILY PRN 07/30/23 07/30/23 History 0.1% Cream] Vancomycin 1,500 mg IV DAILY 07/30/23 07/31/23 History allopurinoL [Zyloprim] 100 mg PO DAILY 07/30/23 07/30/23 History amLODIPine [Norvasc] 5 mg PO DAILY 07/30/23 07/30/23 History dilTIAZem HCL [dilTIAZem HCL 24Hr 120 mg PO DAILY 07/30/23 07/30/23 History ER (CD)] diphenhydrAMINE [Benadryl] 25 mg PO Q6H PRN 07/30/23 07/30/23 History lisinopriL [Zestril] 5 mg PO HS 07/30/23 07/30/23 History oxyCODONE HCL [oxyCODONE HCL (IR)] 20 mg PO TID 07/30/23 07/30/23 History Allergies Allergy/AdvReac Type Severity Reaction Status Date / Time No Known Allergies Allergy Verified 07/30/23 19:12 Physical Exam Vitals: Vital Signs Temp Pulse Pulse Resp BP BP BP 07/31/23 07:14 97.7 F 96 18 152/92 07/31/23 01:06 98.2 F 87 17 156/82 07/30/23 23:08 75 18 143/86 07/30/23 19:10 98.7 F 71 16 134/67 Pulse Ox 07/31/23 07:14 97 07/31/23 01:06 97 07/30/23 23:08 97 07/30/23 19:10 97 Intake and Output 07/30/23 07/31/23 07/31/23 22:59 06:59 14:59 Other: Voiding Method Toilet Urinal # Voids 2 # Bowel Movements 1 Weight 104.326 kg 104.326 kg Results CBC & Chem 7: 07/30/23 21:08 07/30/23 21:08 Labs: Abnormal Lab Results - Last 24 Hours (Table) 07/30/23 07/30/23 07/30/23 Range/Units 21:08 21:08 21:08 Lymphocytes # 0.7 L (1.0-4.8) k/uL PT 15.6 H (10.0-12.5) sec INR 1.5 H (<1.2) APTT 35.3 H (22.0-30.0) sec Sodium 136 L (137-145) mmol/L Calcium 8.0 L (8.4-10.2) mg/dL Magnesium 1.2 L (1.6-2.3) mg/dL Albumin 3.3 L (3.5-5.0) g/dL Ur Leukocyte Esterase (Negative) 07/31/23 Range/Units 00:34 Lymphocytes # (1.0-4.8) k/uL PT (10.0-12.5) sec INR (<1.2) APTT (22.0-30.0) sec Sodium (137-145) mmol/L Calcium (8.4-10.2) mg/dL Magnesium (1.6-2.3) mg/dL Albumin (3.5-5.0) g/dL Ur Leukocyte Esterase Trace H (Negative) Assessment and Plan Plan: 1patient was hospitalized weakness which is likely multifactorial patient was complaining of some cough no significant sputum production chest x-ray did show some consolidation concerning for possible pneumonia in this patient has been around the hospital will need to cover for the resistant gram-positive as well as gram-negative pathogen 2-try to obtain sputum for Gram stain culture check a CRP and a procalcitonin 3-patient did have a nonhealing wound to the plantar aspect of the right foot wound itself does not look deep apparently has been diagnosed with osteomyelitis at the outside facility will try to obtain an MRI/CT/both scan as well as culture data 4-I will check inflammatory markers 5-start the patient on vancomycin pharmacy to dose and cefepime while waiting for the workup to be completed We will follow on clinical condition and cultures to further adjust medication if needed Thank you for this consultation we will follow the patient along with you Dictation was produced using [employer] dictation software. please excuse any grammatical, word or spelling errors. Time with Patient: Greater than 30
--- NOTE | 2023-08-01 01:12 | P.HPIM ---
History of Present Illness H&P Date: 07/31/23 Chief Complaint: Weakness Patient is a 78-year-old male with a past medical history of hypertension, osteoarthritis, atrial fibrillation on anticoagulation with Xarelto, chronic low back pain, bilateral feet neuropathy and recent history of right foot wound and s/p antibiotic course completed yesterday. Patient was brought to the hospital due to generalized weakness, patient has been having confusion and altered mental status and has been increasingly lethargic. Patient has home visiting nurse and was told that his vancomycin level was elevated. Patient has been on vancomycin and Invanz. Chest x-ray showed cardiomegaly with low lung volumes and likely mild pulmonary vascular congestion. Additional airspace disease suggested in the left mid and lower lung zones with suspected small left pleural effusion follow-up is advised. EKG showed atrial fibrillation with heart rate 77 Laboratory data showed WBC 8.2 hemoglobin 13.0 and platelets 295 Sodium 136 potassium 4.0 chloride 100 bicarb is 28 BUN 20 and creatinine 1.24 and magnesium 1.2 Albumin 3.3 Urinalysis negative for infection. Vancomycin level 36.7 Review of Systems Constitutional: Patient denies any fever or chills . Patient does have generalized weakness and fatigue. Abdomen: Patient denied nausea vomiting and diarrhea and abdominal pain. Cardiovascular: Patient denies any chest pain or short of breath no palpitations. Respiratory: patient denied any cough is from production. No shortness of breath Neurologic: Patient denied any numbness or tingling headache. Musculoskeletal: Patient denies any complaints of joint swelling or deformity. Skin: Negative Psychiatric: Negative Endocrine: No heat or cold intolerance. No recent weight gain. Genitourinary: No dysuria or hematuria. All other 14 point ROS negative except the above Past Medical History Past Medical History: Atrial Fibrillation, Hypertension, Osteoarthritis (OA) Additional Past Medical History / Comment(s): 11/09/14 I&D L hip. Other HX: Seroma L hip, chronic backpain, neuropathy bilateral feet, chronic bradycardia, gout, GLAUCOMA bilaterally History of Any Multi-Drug Resistant Organisms: None Reported Past Surgical History: Joint Replacement, Orthopedic Surgery Additional Past Surgical History / Comment(s): 11/09/14 I&D L hip. Other SX: 10/22/14 I&D L hip, TOTAL LEFT HIP ARTHOPLASTY 08/17/14, LEFT HIP REVISION 09/03/14 Past Anesthesia/Blood Transfusion Reactions: No Reported Reaction Additional Past Anesthesia/Blood Transfusion Reaction / Comment(s): HAS ONLY HAD IV SEDATION. Past Psychological History: Anxiety Additional Psychological History / Comment(s): VERY ANXIOUS ABOUT GETTING A PRIVATE ROOM, SPOUSE STATES HE WILL WALK OUT IF HE CAN'T HAVE A PRIVATE ROOM. Pt lives at home with spouse. He is being seen by [facility] for his L hip wound and. R foot 2nd and 3rd toe wounds daily. PTiscoming into the home. He is ambulating with a cane now. He has a raised toilet seat. The family home is [place] a farm where they have cattle. His is caring for them while he has been somewhat disabled from his surgeries. 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 Denied experience her extensive travels. Animal exposure is from the heard only at this time. Was a tobacco smoker but stopped in early without significant alcohol or recreational drug use. Smoking Status: Former smoker Past Alcohol Use History: None Reported Past Drug Use History: None Reported - Past Family History Father Family Medical History: CVA/TIA Medications and Allergies Home Medications Medication Instructions Recorded Confirmed Type Ferrous Sulfate [Iron (65 MG 325 mg PO DAILY #30 tab 09/08/14 07/30/23 Rx Elemental)] DULoxetine HCL [Cymbalta] 30 mg PO HS 09/25/19 07/30/23 History Rivaroxaban [Xarelto] 20 mg PO HS 09/25/19 07/30/23 History Albuterol Inhaler [Ventolin Hfa 2 puff INHALATION RT-Q6H PRN 07/30/23 07/30/23 History Inhaler] Albuterol Nebulized [Ventolin 2.5 mg INHALATION RT-Q6H PRN 07/30/23 07/30/23 History Nebulized] Atorvastatin [Lipitor] 20 mg PO HS 07/30/23 07/30/23 History Dakin's Solution 0.25% 1 applic TOPICAL DAILY 07/30/23 07/30/23 History Ertapenem [INVanz] 1 gm IV DAILY 07/30/23 07/31/23 History L.rhamnosus/B.animalis(Lactis) 1 cap PO DAILY 07/30/23 07/30/23 History [Ramirez' Colon Hlth 3B Cfu Cp] Levothyroxine Sodium [Synthroid] 50 mcg PO DAILY 07/30/23 07/30/23 History Metoprolol Succinate (ER) [Toprol 50 mg PO BID 07/30/23 07/30/23 History Xl] Pantoprazole [Protonix] 40 mg PO DAILY 07/30/23 07/30/23 History Triamcinolone 0.1% Cream [Kenalog 1 applicatio TOPICAL DAILY PRN 07/30/23 07/30/23 History 0.1% Cream] Vancomycin 1,500 mg IV DAILY 07/30/23 07/31/23 History allopurinoL [Zyloprim] 100 mg PO DAILY 07/30/23 07/30/23 History amLODIPine [Norvasc] 5 mg PO DAILY 07/30/23 07/30/23 History dilTIAZem HCL [dilTIAZem HCL 24Hr 120 mg PO DAILY 07/30/23 07/30/23 History ER (CD)] diphenhydrAMINE [Benadryl] 25 mg PO Q6H PRN 07/30/23 07/30/23 History lisinopriL [Zestril] 5 mg PO HS 07/30/23 07/30/23 History oxyCODONE HCL [oxyCODONE HCL (IR)] 20 mg PO TID 07/30/23 07/30/23 History Allergies Allergy/AdvReac Type Severity Reaction Status Date / Time No Known Allergies Allergy Verified 07/30/23 19:12 Physical Exam Vitals: Vital Signs Temp Pulse Pulse Resp BP BP BP 07/31/23 07:14 97.7 F 96 18 152/92 07/31/23 01:06 98.2 F 87 17 156/82 07/30/23 23:08 75 18 143/86 07/30/23 19:10 98.7 F 71 16 134/67 Pulse Ox 07/31/23 07:14 97 07/31/23 01:06 97 07/30/23 23:08 97 07/30/23 19:10 97 Intake and Output 07/30/23 07/31/23 07/31/23 22:59 06:59 14:59 Other: Voiding Method Toilet Urinal # Voids 2 # Bowel Movements 1 Weight 104.326 kg 104.326 kg PHYSICAL EXAMINATION: Patient is lying in the bed comfortably, no acute distress, awake alert and oriented but lethargic and confused... HEENT: Normocephalic. Neck is supple. Pupils reactive. Nostrils clear. Oral cavity is moist. Neck reveals no JVD, carotid bruits, or thyromegaly. CHEST EXAMINATION: Trachea is central. Symmetrical expansion. Bibasilar diminished sounds. No wheezing. Lung recio clear to auscultation and percussion. CARDIAC: Normal S1, S2 with no gallops. No murmurs ABDOMEN: Soft. Bowel sounds normal. No organomegaly. No abdominal bruits. Extremities: reveal no edema. No clubbing or cyanosis Neurologically awake, alert, oriented x 2-3. With well-coordinated movements. No gross focal deficits noted Skin: No rash or skin lesions. Psychiatric: Coperative. Could not be assessed completely Musculoskeletal: No joint swelling or deformity. Normal range of motion. Results CBC & Chem 7: 07/30/23 21:08 07/30/23 21:08 Labs: Abnormal Lab Results - Last 24 Hours (Table) 07/30/23 07/30/23 07/30/23 Range/Units 21:08 21:08 21:08 Lymphocytes # 0.7 L (1.0-4.8) k/uL PT 15.6 H (10.0-12.5) sec INR 1.5 H (<1.2) APTT 35.3 H (22.0-30.0) sec Sodium 136 L (137-145) mmol/L Calcium 8.0 L (8.4-10.2) mg/dL Magnesium 1.2 L (1.6-2.3) mg/dL Albumin 3.3 L (3.5-5.0) g/dL Ur Leukocyte Esterase (Negative) 07/31/23 Range/Units 00:34 Lymphocytes # (1.0-4.8) k/uL PT (10.0-12.5) sec INR (<1.2) APTT (22.0-30.0) sec Sodium (137-145) mmol/L Calcium (8.4-10.2) mg/dL Magnesium (1.6-2.3) mg/dL Albumin (3.5-5.0) g/dL Ur Leukocyte Esterase Trace H (Negative) Thrombosis Risk Factor Assmnt - DVT/VTE Prophylaxis DVT/VTE Prophylaxis: Pharmacologic Prophylaxis ordered - Choose All That Apply Any of the Below Risk Factors Present?: Yes Each Factor Represents 1 point: Obesity (BMI >25) Each Risk Factor Represents 3 Points: Age 75 years or older Thrombosis Risk Factor Assessment Total Risk Factor Score: 4 Thrombosis Risk Factor Assessment Level: Moderate Risk Assessment and Plan Assessment: Generalized weakness and altered mental status possible metabolic encephalopathy and recent antibiotic use Possible pneumonia with chest x-ray concerning for consolidation left mid and lower lung zones. Nonhealing right plantar heel ulcer with osteomyelitis. Completed antibiotic course with vancomycin and Invanz 2 days ago Hypertension Chronic atrial fibrillation on anticoagulation with Xarelto Chronic low back pain Bilateral peripheral neuropathy Levothyroxine DVT prophylaxis patient is already on Xarelto Plan: Patient will be continued on gentle IV hydration. CT head was ordered to rule out intracranial etiology for altered mental status Patient was started on vancomycin and cefepime due to concern for pneumonia as per chest x-ray. Procalcitonin and CRP also ordered. ID is on board. Continue with home medications and anticoagulation with Xarelto. Follow-up closely. Discussed with his daughter via telephone in detail. Medical release form was sent to get records including bone scan from outside hospital. Time with Patient: Greater than 30
[2023-08-01] MEDS: SODIUM CHLORIDE 0.9% 1,000 ML IV SCH (03:08)
[2023-08-01] MEDS: amLODIPine 5 MG TAB PO SCH (08:10)
[2023-08-01] MEDS: LACTOBACILLUS ACIDOPHILUS/PECT 1 EACH CAPSULE PO SCH (08:11)
--- NOTE | 2023-08-01 08:22 | XR ---
EXAMINATION TYPE: XR foot complete RT DATE OF EXAM: 08/01/2023 COMPARISON: NONE HISTORY: 78-year-old male right foot plantar ulcer, possible osteomyelitis, pain TECHNIQUE: 3 views FINDINGS: There is severe degenerative change along the TMT joint articulations. Additional advanced degenerative change scattered throughout the MTP and IP joints. Possible chronic fracture deformity o r sequela of old infection first MTP joint and first metatarsal head. While there is suggestion of so me well-defined juxta-articular erosions, no focal lytic bone destruction is identified. IMPRESSION: 1. Possible chronic fracture deformity or sequela of old infection with joint deformity and fragmenta tion at the first MTP joint and metatarsal head. Clinically correlate. 2. Advanced osteoarthrosis throughout the midfoot and scattered throughout the MTP and IP joints. Fin dings may be on the basis of early Charcot's arthropathy. Given possible well-defined juxta-articular erosions, gouty arthritis is also a consideration. 3. Midfoot plantar soft tissue ulcer. No underlying discrete lytic destruction is clearly identified.
[2023-08-01 08:52] LABS: Basophils # (A) 0.03 X 10*3/uL (0.00-0.10); Basophils % (A) 0.4 %; Eosinophils # (A) 0.49 X 10*3/uL (0.04-0.35); Eosinophils % (A) 6.3 %; HCT 35.4 % (39.6-50.0); HGB 11.7 g/dL (13.0-17.0); Lymphocytes # (A) 0.96 X 10*3/uL (0.90-5.00); Lymphocytes % (A) 12.4 %; MCH 29.3 pg (27.0-32.0); MCHC 33.1 g/dL (32.0-37.0); MCV 88.7 FL (80.0-97.0); Mean Platelet Volume 9.8 FL (9.5-12.2); Monocytes % (A) 9.1 %; NRBC Per 100 WBC 0 X 10*3/uL (0.00-0.01); Neutrophils # (A) 5.53 X 10*3/uL (1.80-7.70); Neutrophils % (A) 71.5 %; Platelet Count 284 X 10*3/uL (140-440); RBC 3.99 X 10*6/uL (4.40-5.60); RDW 14.7 % (11.5-14.5); WBC 7.73 X 10*3/uL (4.50-10.00)
[2023-08-01 09:02] LABS: BUN/Creat Ratio 12.73 Ratio (12.00-20.00); Calcium 8.3 mg/dL (8.7-10.3); Carbon Dioxide 24.7 mmol/L (21.6-31.8); Chloride 101 mmol/L (96-109); Glucose 92 mg/dL (70-110); Sodium 135 mmol/L (135-145)
[2023-08-01 10:53] LABS: Erythrocyte Sedimentation Rate 58 mm/Hr (0-20)
[2023-08-01] MEDS: CEFEPIME 2 GM in SODIUM CHLORIDE 0.9% 100 ML IVPB SCH (16:32)
[2023-08-01] MEDS ORDERED: HYDROCORTISONE 1% OINT 28.35 GM TUBE TOPICAL PRN (18:14)
[2023-08-01] MEDS: diphenhydrAMINE 25 MG CAP PO PRN (21:38)
[2023-08-02 05:40] LABS: African American GFR (CKD) 58 (>60 ml/min/1.73 sqM); Non-African American GFR(CKD) 50 (>60 ml/min/1.73 sqM)
[2023-08-02 05:45] LABS: Vancomycin,Random 23.5 ug/mL
--- NOTE | 2023-08-02 07:11 | P.PN ---
Subjective Progress Note Date: 08/01/23 Patient is a 78-year-old male with a past medical history of hypertension, osteoarthritis, atrial fibrillation on anticoagulation with Xarelto, chronic low back pain, bilateral feet neuropathy and recent history of right foot wound and s/p antibiotic course completed yesterday. Patient was brought to the hospital due to generalized weakness, patient has been having confusion and altered mental status and has been increasingly lethargic. Patient has home visiting nurse and was told that his vancomycin level was elevated. Patient has been on vancomycin and Invanz. Chest x-ray showed cardiomegaly with low lung volumes and likely mild pulmonary vascular congestion. Additional airspace disease suggested in the left mid and lower lung zones with suspected small left pleural effusion follow-up is advised. EKG showed atrial fibrillation with heart rate 77 Laboratory data showed WBC 8.2 hemoglobin 13.0 and platelets 295 Sodium 136 potassium 4.0 chloride 100 bicarb is 28 BUN 20 and creatinine 1.24 and magnesium 1.2 Albumin 3.3 Urinalysis negative for infection. Vancomycin level 36.7 08/01/2023 Patient seen and evaluated in follow-up With infectious disease following patient recently just completed antibiotic course outpatient. Foot x-ray ordered and pending. Patient undergoing electrolyte replacement and will monitor and follow-up with repeat labs. A.m. labs are pending. Patient to be evaluated by physical therapy. Patient is afebrile with no reports of chest pain or shortness of breath. Encouraged oral intake and increased activity as tolerated. Review of systems: Constitutional: No reports of fatigue, fever, or chills Cardiovascular: No reports of chest pain or palpitations Respiratory: No reports of shortness of breath or cough GI: No reports of nausea, vomiting, or diarrhea : No reports of dysuria or retention Neurovascular: reports of generalized weakness All medications have been reviewed PHYSICAL EXAMINATION: Patient is lying in the bed comfortably, awake alert and oriented, less confused today, elderly appearing, well-developed HEENT: Normocephalic. Neck is supple. Pupils reactive. Nostrils clear. Oral cavity is moist. Neck reveals no JVD, carotid bruits, or thyromegaly. CHEST EXAMINATION: Trachea is central. Symmetrical expansion. Bibasilar di minished sounds. No wheezing. Lung recio clear to auscultation and percussion. CARDIAC: Normal S1, S2 with no gallops. No murmurs ABDOMEN: Soft. Bowel sounds normal. No organomegaly. No abdominal bruits. Extremities: reveal no edema. No clubbing or cyanosis Neurologically awake, alert, oriented x 2-3. With well-coordinated movements. No gross focal deficits noted, diffusely weak Skin: No rash or skin lesions. Psychiatric: Cooperative. Could not be assessed completely Musculoskeletal: No joint swelling or deformity. Normal range of motion. Assessment: Generalized weakness and altered mental status possible metabolic encephalopathy and recent antibiotic use Possible pneumonia with chest x-ray concerning for consolidation left mid and lower lung zones. Nonhealing right plantar heel ulcer with osteomyelitis. Completed antibiotic course with vancomycin and Invanz 2 days ago Hypertension Hypomagnesemia, being replaced Chronic atrial fibrillation on anticoagulation with Xarelto Chronic low back pain Bilateral peripheral neuropathy Levothyroxine DVT prophylaxis patient is already on Xarelto GI prophylaxis Full code Plan: Patient will be continued on gentle IV hydration. CT head was ordered, ruled out intracranial etiology for altered mental status Patient was started on vancomycin and cefepime due to concern for pneumonia as per chest x-ray. Procalcitonin and CRP also ordered. ID following and will follow-up on labs Continue with home medications and anticoagulation with Xarelto. Replace electrolytes per protocol and will repeat labs in the a.m. Recommend PT/OT therapy evaluation Will discuss with case management regarding treatment plan moving forward as well as discharge planning Medical release form was sent to get records including bone scan from outside hospital. Foot x-ray ordered and pending Due to multiple complex medical issues, prognosis is guarded The impression and plan of care has been dictated by Gianna Newman, Nurse Practitioner as directed. Dr. Jami MD I have performed a history and examination and MDM of this patient, discussed the same with the dictator, and agree with the dictator's assessment and plan as written ,documented as a scribe. Based on total visit time, I have performed more than 50% of the visit. Objective - Vital Signs Vital signs: Vital Signs Temp 98.7 F 08/01/23 14:13 Pulse 83 08/01/23 14:13 Resp 18 08/01/23 14:13 BP 119/79 08/01/23 14:13 Pulse Ox 94 L 08/01/23 14:13 FiO2 Intake & Output 07/31/23 08/01/23 08/01/23 18:59 06:59 18:59 Other: Voiding Method Toilet Toilet Urinal Urinal # Voids 1 3 3 # Bowel Movements 1 - Labs CBC & Chem 7: 08/01/23 02:58 08/02/23 05:02 Labs: Abnormal Lab Results - Last 24 Hours (Table) 07/31/23 08/01/23 08/01/23 Range/Units 16:50 02:58 02:58 RBC 3.99 L (4.40-5.60) X 10*6/uL Hgb 11.7 L (13.0-17.0) g/dL Hct 35.4 L (39.6-50.0) % RDW 14.7 H (11.5-14.5) % Eosinophils # 0.49 H (0.04-0.35) X 10*3/uL ESR 58 H (0-20) mm/Hr Calcium 8.3 L (8.7-10.3) mg/dL C-Reactive Protein 1.9 H 1.80 H (<1.0) mg/dL
[2023-08-02 08:21] VITALS: RESP 18
[2023-08-02] MEDS: CEFEPIME 2 GM in SODIUM CHLORIDE 0.9% 100 ML IVPB SCH (12:43)
--- NOTE | 2023-08-02 13:19 | P.PN ---
Subjective Progress Note Date: 08/01/23 Principal diagnosis: Reason for follow-up is pneumonia and possible osteomyelitis right foot Patient is a 78-year-old male with a past medical history significant for hypertension osteoarthritis atrial fibrillation in this patient who did have a nonhealing wound on the plantar aspect of the right foot and apparently he was recently diagnosed with osteomyelitis at [facility] and the patient has been treated with IV vancomycin and Invanz patient now presenting to [facility] ER for evaluation of weakness, patient be diagnosed with possible pneumonia admitted to hospital for antibiotic therapy. On today's evaluation that is 08/01/2023,the patient denies any fever or any chills, patient is breathing comfortably on room air, the patient denies chest pain shortness of breath and no worsening cough, patient denies abdominal pain, no nausea vomiting or diarrhea. Patient denies any pain to the right foot wound area which has been there for about 4 months Patient white count 7.73 creatinine is 1.1 ESR 58 Vanco trough of 25.5 x-ray did show significant mild abnormality of the right foot Objective - Vital Signs Vital signs: Vital Signs Temp 98.1 F 08/01/23 07:40 Pulse 68 08/01/23 07:40 Resp 17 08/01/23 07:40 BP 141/90 08/01/23 07:40 Pulse Ox 94 L 08/01/23 07:40 FiO2 Intake & Output 07/31/23 08/01/23 08/01/23 18:59 06:59 18:59 Other: Voiding Method Toilet Toilet Urinal Urinal # Voids 1 3 # Bowel Movements 1 - Exam GENERAL DESCRIPTION: An elderly male lying in bed in no distress RESPIRATORY SYSTEM: Unlabored breathing , decreased breath sounds at bases HEART: S1 S2 regular rate and rhythm , ABDOMEN: Soft , no tenderness EXTREMITIES: Right foot wound on the plantar aspect mostly on the medial border with some callus wound is not probing down to the wound - Labs CBC & Chem 7: 08/01/23 02:58 08/02/23 05:02 Labs: Abnormal Lab Results - Last 24 Hours (Table) 07/31/23 08/01/23 08/01/23 Range/Units 16:50 02:58 02:58 RBC 3.99 L (4.40-5.60) X 10*6/uL Hgb 11.7 L (13.0-17.0) g/dL Hct 35.4 L (39.6-50.0) % RDW 14.7 H (11.5-14.5) % Eosinophils # 0.49 H (0.04-0.35) X 10*3/uL ESR 58 H (0-20) mm/Hr Calcium 8.3 L (8.7-10.3) mg/dL C-Reactive Protein 1.9 H 1.80 H (<1.0) mg/dL Assessment and Plan (1) Right foot ulcer Current Visit: Yes Status: Acute Code(s): L97.519 - NON-PRS CHRONIC ULCER OTH PRT RIGHT FOOT W UNSP SEVERITY SNOMED Code(s): 865080966 (2) Pneumonia Current Visit: Yes Status: Acute Code(s): J18.9 - PNEUMONIA, UNSPECIFIED ORGANISM SNOMED Code(s): 955481673 (3) Foot osteomyelitis, right Current Visit: Yes Status: Acute Code(s): M86.9 - OSTEOMYELITIS, UNSPECIFIED SNOMED Code(s): 2990498331541270 Plan: 1patient was hospitalized weakness which is likely multifactorial patient was complaining of some cough no significant sputum production chest x-ray did show some consolidation concerning for possible pneumonia in this patient has been around the hospital will need to cover for the resistant gram-positive as well as gram-negative pathogen 2--patient did have a nonhealing wound to the plantar aspect of the right foot, patient has been diagnosed with osteomyelitis at the outside facility I was able to review the records from the [facility] patient did have a both scan that was suggestive of possible osteomyelitis to the right first tarsal metatarsal joint area however the patient wound is not exactly the same location and the patient did have a negative culture at that facility the patient daughter has been questioning his diagnosis of osteomyelitis at the patient do follow-up with the hat measurer out of the [facility] and apparently recently did have a debridement done and there was no suspicious for osteomyelitis daughter has been very concerned for the patient has history of C. difficile colitis and do not want to any unnecessary antibiotic therapy, we will go ahead and discontinue vancomycin as a culture negative for MRSA from the other facility and cefepime can be discontinued tomorrow as the patient has received adequate antibiotic for possible pneumonia patient will follow with his hat measurer in the outpatient setting and if there is any further debridement done patient should have some deep culture and if positive patient can be brought to the office for consideration of antibiotics multiple question concern has been answered in layman terms Dictation was produced using [employer] dictation software. please excuse any grammatical, word or spelling errors.
--- NOTE | 2023-08-02 13:24 | P.PN ---
Subjective Progress Note Date: 08/02/23 Principal diagnosis: Reason for follow-up is pneumonia and possible osteomyelitis right foot Patient is a 78-year-old male with a past medical history significant for hypertension osteoarthritis atrial fibrillation in this patient who did have a nonhealing wound on the plantar aspect of the right foot and apparently he was recently diagnosed with osteomyelitis at [facility] and the patient has been treated with IV vancomycin and Invanz patient now presenting to [facility] ER for evaluation of weakness, patient be diagnosed with possible pneumonia admitted to hospital for antibiotic therapy. On today's evaluation that is 08/02/2023,the patient remains to be afebrile, patient is on room air not requiring supplemental oxygen and denies any s hortness of breath no chest pain or cough.Patient denies having any nausea or vomiting, no abdominal pain and no diarrhea has been reported, patient denies pain to the right foot wound feeling better wants to go home. Patient did have a normal white count during this admission no CBC was done today his creatinine is 1.34 vancomycin random is 23.5 blood cultures negative so far Objective - Vital Signs Vital signs: Vital Signs Temp 98.3 F 08/02/23 07:12 Pulse 98 08/02/23 07:12 Resp 18 08/02/23 08:06 BP 152/89 08/02/23 07:12 Pulse Ox 94 L 08/02/23 07:12 FiO2 Intake & Output 08/01/23 08/02/23 08/02/23 18:59 06:59 18:59 Output Total 800 Balance -800 Output: Urine 800 Other: Voiding Method Toilet Urinal # Voids 2 3 1 - Exam GENERAL DESCRIPTION: An elderly male lying in bed in no distress RESPIRATORY SYSTEM: Unlabored breathing , decreased breath sounds at bases HEART: S1 S2 regular rate and rhythm , ABDOMEN: Soft , no tenderness EXTREMITIES: Right foot wound on the plantar aspect mostly on the medial border with some callus wound is not probing down to the wound - Labs CBC & Chem 7: 08/01/23 02:58 08/02/23 05:02 Labs: Abnormal Lab Results - Last 24 Hours (Table) 08/02/23 Range/Units 05:02 Creatinine 1.34 H (0.66-1.25) mg/dL Microbiology - Last 24 Hours (Table) 05/08/24 17:03 Blood Culture - Preliminary Blood Assessment and Plan (1) Right foot ulcer Current Visit: Yes Status: Acute Code(s): L97.519 - NON-PRS CHRONIC ULCER OTH PRT RIGHT FOOT W UNSP SEVERITY SNOMED Code(s): 758331445 (2) Pneumonia Current Visit: Yes Status: Acute Code(s): J18.9 - PNEUMONIA, UNSPECIFIED ORGANISM SNOMED Code(s): 477424824 (3) Foot osteomyelitis, right Current Visit: Yes Status: Acute Code(s): M86.9 - OSTEOMYELITIS, UNSPECIFIED SNOMED Code(s): 2711677517433836 Plan: 1patient was hospitalized weakness which is likely multifactorial patient was complaining of some cough no significant sputum production chest x-ray did show some consolidation concerning for possible pneumonia in this patient has been around the hospital will need to cover for the resistant gram-positive as well as gram-negative pathogen 2--patient did have a nonhealing wound to the plantar aspect of the right foot, patient has been diagnosed with osteomyelitis at the outside facility I was able to review the records from the [facility] patient did have a both scan that was suggestive of possible osteomyelitis to the right first tarsal metatarsal joint area however the patient wound is not exactly the same location and the patient did have a negative culture at that facility the patient lilliana connors has been questioning his diagnosis of osteomyelitis at the patient do follow-up with the [facility] and apparently recently did have a debridement done and there was no suspicious for osteomyelitis daughter has been very concerned for the patient has history of C. difficile colitis and do not want to any unnecessary antibiotic therapy, there was some destructive changes on the plain film x-ray views obtained here however the daughter mentioned those has been related to his history of gout patient daughter seem to be knowledgeable about his condition has been advised to follow-up with the ingredient specialist in the outpatient setting and if any worsening of the wound or suspicious for infection culture should be obtained and the patient be brought back to the office recommending no antibiotic on discharge to discontinue the PICC line this was discussed with MACHINE DRILLER for admitting team Dictation was produced using [employer] dictation software. please excuse any gr ammatical, word or spelling errors. Time with Patient: Less than 30
[2023-08-02 14:24] VITALS: BP 120/65; PULSE 75; TEMP 97.7
--- NOTE | 2023-08-05 09:35 | P.DS ---
Providers Date of admission: 07/30/23 22:28 Expected date of discharge: 08/02/23 Attending physician: Shelli Riggs Consults: 07/30/23 22:27 Consult Physician Routine Consulting Provider: Vini Florez Consult Reason/Comments: Foot ulceration, being treated for osteomyelitis Do you want consulting provider notified?: Yes Primary care physician: Ileana Alatorre Hospital Course: Final diagnosis Generalized weakness and altered mental status possible metabolic encephalopathy and recent antibiotic use, improved Possible pneumonia with chest x-ray concerning for consolidation left mid and lower lung zones. Ruled out Nonhealing right plantar heel ulcer with osteomyelitis. Completed antibiotic course with vancomycin and Invanz 2 days ago Hypertension Hypomagnesemia, improved Chronic atrial fibrillation on anticoagulation with Xarelto Chronic low back pain Bilateral peripheral neuropathy Levothyroxine DVT prophylaxis patient is already on Xarelto GI prophylaxis Full code Discharge disposition Patient is being discharged in a stable condition with guarded prognosis to home with home care. Patient will follow-up with Dr. Alatorre in the outpatient setting upon discharge. Total time taken is greater than 35 minutes. Hospital course This is a 78-year-old male who was recently admitted with generalized weakness and altered mentation being closely monitored. Patient recently had IV antibiotics in the outpatient setting for right heel plantar ulcer with concerns of osteomyelitis. Patient was maintained on IV antibiotics and continues with a PICC line and is being followed by infectious disease. Awaiting medical records from previous hospitalization. Patient was significantly hypomagnesemic and replaced and also evaluated by physical therapy and plans on returning home. Patient to follow-up with primary care provider on discharge. PICC line has been removed and patient will not require antibiotics on discharge. Please refer to other consultation notes for further HPI. Patient had issues while being at [facility] per daughter and medications were extremely adjusted and daughter requesting his blood pressure medications and rate control medic ations to be return to previous she will be following up with his release of information specialist in the outpatient setting. Currently no reports of chest pain, shortness of breath, or palpitations. Patient is afebrile. No reports of nausea or vomiting and patient is tolerating diet. Patient will be discharged home today. Guarded prognosis and high risk for readmission given patient's significant comorbidities. Physical exam: Gen: This is a 78-year-old male who is awake, alert and oriented x 2-3, well- developed, well-nourished, elderly appearing HEENT: Head is atraumatic, normocephalic. Pupils equal, round. Sclerae is anicteric. NECK: Supple. No JVD. No lymphadenopathy. No thyromegaly. LUNGS: Diminished breath sounds bilaterally otherwise clear to auscultation. No wheezes or rhonchi. No intercostal retractions. HEART: S1, S2 are muffled ABDOMEN: Soft. Bowel sounds are present. No masses. No tenderness. EXTREMITIES: No pedal edema. No calf tenderness. NEUROLOGICAL: Patient is awake, alert and oriented x3. Cranial nerves 2 through 12 are grossly intact. Diffusely weak Please refer to medication reconciliation sheet for a list of medications. The impression and plan of care has been dictated by Gianna Newman, Nurse Practitioner as directed. Dr. Oneil MD I have performed a history and examination and MDM of this patient, discussed the same with the dictator, and agree with the dictator's assessment and plan as written ,documented as a scribe. Based on total visit time, I have performed more than 50% of the visit. Patient Condition at Discharge: Stable Plan - Discharge Summary Discharge Rx Participant: No New Discharge Prescriptions: New Hydrocortisone Oint [Hydrocortisone 1% Oint] 1 applic TOPICAL TID PRN 30 Days #1 each PRN Reason: Skin Irritation oxyCODONE HCL [OxyIR] 20 mg PO TID PRN tab PRN Reason: Pain Acetaminophen Tab [Tylenol] 650 mg PO Q6HR PRN tab PRN Reason: Mild Pain Or Fever > 100.5 Metoprolol Succinate (ER) [Toprol XL] 25 mg PO DAILY 30 Days #30 tab Continue Ferrous Sulfate [Iron (65 MG Elemental)] 325 mg PO DAILY #30 tab DULoxetine HCL [Cymbalta] 30 mg PO HS Rivaroxaban [Xarelto] 20 mg PO HS Levothyroxine Sodium [Synthroid] 50 mcg PO DAILY Atorvastatin [Lipitor] 20 mg PO HS allopurinoL [Zyloprim] 100 mg PO DAILY lisinopriL [Zestril] 5 mg PO HS L.rhamnosus/B.animalis(Lactis) [Ramirez' Colon Hlth 3B Cfu Cp] 1 cap PO DAILY Albuterol Inhaler [Ventolin Hfa Inhaler] 2 puff INHALATION RT-Q6H PRN PRN Reason: Shortness Of Breath diphenhydrAMINE [Benadryl] 25 mg PO Q6H PRN PRN Reason: itching/allergies amLODIPine [Norvasc] 5 mg PO DAILY Dakin's Solution 0.25% 1 applic TOPICAL DAILY Triamcinolone 0.1% Cream [Kenalog 0.1% Cream] 1 applicatio TOPICAL DAILY PRN PRN Reason: skin issues Albuterol Nebulized [Ventolin Nebulized] 2.5 mg INHALATION RT-Q6H PRN PRN Reason: Shortness Of Breath Pantoprazole [Protonix] 40 mg PO DAILY Discontinued Vancomycin 1,500 mg IV DAILY Metoprolol Succinate (ER) [Toprol Xl] 50 mg PO BID dilTIAZem HCL [dilTIAZem HCL 24Hr ER (CD)] 120 mg PO DAILY oxyCODONE HCL [oxyCODONE HCL (IR)] 20 mg PO TID Ertapenem [INVanz] 1 gm IV DAILY Discharge Medication List Ferrous Sulfate [Iron (65 MG Elemental)] 325 mg PO DAILY #30 tab 09/08/14 [Rx] DULoxetine HCL [Cymbalta] 30 mg PO HS 09/25/19 [History] Rivaroxaban [Xarelto] 20 mg PO HS 09/25/19 [History] Albuterol Inhaler [Ventolin Hfa Inhaler] 2 puff INHALATION RT-Q6H PRN 07/30/23 [History] Albuterol Nebulized [Ventolin Nebulized] 2.5 mg INHALATION RT-Q6H PRN 07/30/23 [History] Atorvastatin [Lipitor] 20 mg PO HS 07/30/23 [History] Dakin's Solution 0.25% 1 applic TOPICAL DAILY 07/30/23 [History] L.rhamnosus/B.animalis(Lactis) [Ramirez' Colon Hlth 3B Cfu Cp] 1 cap PO DAILY 07/30/23 [History] Levothyroxine Sodium [Synthroid] 50 mcg PO DAILY 07/30/23 [History] Pantoprazole [Protonix] 40 mg PO DAILY 07/30/23 [History] Triamcinolone 0.1% Cream [Kenalog 0.1% Cream] 1 applicatio TOPICAL DAILY PRN 07/30/23 [History] allopurinoL [Zyloprim] 100 mg PO DAILY 07/30/23 [History] amLODIPine [Norvasc] 5 mg PO DAILY 07/30/23 [History] diphenhydrAMINE [Benadryl] 25 mg PO Q6H PRN 07/30/23 [History] lisinopriL [Zestril] 5 mg PO HS 07/30/23 [History] Acetaminophen Tab [Tylenol] 650 mg PO Q6HR PRN tab 08/02/23 [Rx] Hydrocortisone Oint [Hydrocortisone 1% Oint] 1 applic TOPICAL TID PRN 30 Days #1 each 08/02/23 [Rx] Metoprolol Succinate (ER) [Toprol XL] 25 mg PO DAILY 30 Days #30 tab 08/02/23 [Rx] oxyCODONE HCL [OxyIR] 20 mg PO TID PRN tab 08/02/23 [Rx] Follow up Appointment(s)/Referral(s): [facility], [NON-STAFF] - As Needed Ileana Alatorre MD [Primary Care Provider] - 1-2 days Activity/Diet/Wound Care/Special Instructions: Activity limited until follow-up Follow-up with primary care provider on discharge Follow-up with release of information specialist at your scheduled appointment Continue taking medications as prescribed Continue to monitor blood pressure and keep a diary of all readings for primary and cardiology follow-up Discharge Disposition: HOME WITH HOME HEALTH SERVICES
--- NOTE | 2023-08-06 10:11 | CDI ---
Documentation Clarification Form Date: 08/06/2023 From: Pamela Barragan Admit Date: 07/30/2023 10:29:00 PM Patient Name: Constantin Pardo Visit Number: [id number] Discharge Date: 08/02/2023 03:45:00 PM ATTENTION: The Clinical Documentation Specialists (CDI) and [facility] Coding Staff appreciate your assistance in clarifying documentation. Please respond to the clarification below the line at the bottom and electronically sign. The CDI & [facility] Coding staff will review the response and follow-up if needed. Please note: Queries are made part of the Legal Health Record. If you have any questions, please contact the author of this message via ITS. Dr. Shelli Riggs, There is documentation of an ulcer of right foot in the H&P. Additional specificity regarding the etiology and severity of the wound is requested. Patient history/risk factors: Pneumonia, chronic atrial fibrillation, Hypertensive heart disease wo heart failure, dehydration, hypomagnesemia, anxiety, OA Clinical Indicators: Non-healing right plantar heelulcerwith osteomyelitis. Wound assessment: Open wound, length/cm 1.4, width/cm 1.2. Treatment: gauze/sponge Consults: Ppatient did have a non-healingwoundto the plantar aspect of the right foot wounditselfdoes not lookdeep apparently has been diagnosed withosteomyelitis at the outside facility will try to obtain anMRI/CT/both scan as well as culture data. Please clarify the etiology and severity of the wound: Etiology: [ ] Non-pressure chronic ulcer due to diabetes [ ] Non-pressure chronic ulcer due to arterial insufficiency [ ] Non-pressure chronic ulcer due to venous insufficiency [ ] Non-pressure chronic ulcer due to trauma [ ] Other, Please specify [ ] Unable to determine Severity: [ ] Limited to breakdown of skin [ ] With fat layer exposed [ ] With necrosis of muscle [ ] With necrosis of bone [ ] Other, Please specify [ ] Unable to determine Unable to determine Unable to determine MTDD
--- NOTE | 2023-08-06 10:20 | CDI ---
Documentation Clarification Form Date: 08/06/23 From: Pamela Barragan Admit Date: 07/30/2023 10:29:00 PM Patient Name: Constantin Pardo Visit Number: [id number] Discharge Date: 08/02/2023 03:45:00 PM ATTENTION: The Clinical Documentation Specialists (CDI) and [facility] Coding Staff appreciate your assistance in clarifying documentation. Please respond to the clarification below the line at the bottom and electronically sign. The CDI & [facility] Coding staff will review the response and follow-up if needed. Please note: Queries are made part of the Legal Health Record. If you have any questions, please contact the author of this message via ITS. Dr. Shelli Riggs, Osteomyelitis is documented in the ED Note, H&P, consult, PNs and DS. Additional clarification regarding the cause and acuity of the osteomyelitis is requested. History/Risk Factors: Pneumonia, chronic atrial fibrillation, Hypertensive heart disease wo heart failure, dehydration, hypomagnesemia, anxiety, OA Clinical Indicators: Non-healing right plantar heel ulcer with osteomyelitis. Labs: WBC 8.2, CR 1.24, CRP 1.90, Procalcitonin 0.06 X-Ray Results: Possible chronic fracture deformity or sequela of old infection with joint deformity and fragmentation at the first MTP joint and metatarsal head. Treatment: IV Vancomycin and Invanz Please clarify the acuity and etiology of the osteomyelitis, if known: Acuity: [ ] Acute osteomyelitis [ ] Chronic osteomyelitis [ ] Subacute osteomyelitis [ ] Unable to Determine Cause: [ ] Viral (specify organism if know): [ ] Bacterial (specify organism if know): [ ] Diabetic [ ] Other (please specify): Chronic osteomyelitis Bacterial MTDD
== END 2023-08-02 15:45 | disposition home health service (06) | DRG 592 ==
LOC: EC 18:59 → 4SSUR 22:28 → OBSVTOIN 22:29 → 4SSUR 22:51
PROVIDERS: ADMIT Hospitalist; ATTEND Hospitalist
DX: L97.519 Non-pressure chronic ulcer of other part of right foot with unspecified severity (principal); G93.41 Metabolic encephalopathy; J18.9 Pneumonia, unspecified organism; M86.671 Other chronic osteomyelitis, right ankle and foot; I48.20 Chronic atrial fibrillation, unspecified; I11.9 Hypertensive heart disease without heart failure; Z28.310 Unvaccinated for COVID-19; E86.0 Dehydration; E83.42 Hypomagnesemia; F41.9 Anxiety disorder, unspecified; G89.29 Other chronic pain; M54.50 Low back pain, unspecified; G62.9 Polyneuropathy, unspecified; M19.90 Unspecified osteoarthritis, unspecified site; H40.9 Unspecified glaucoma; M10.9 Gout, unspecified; Z79.01 Long term (current) use of anticoagulants; Z79.2 Long term (current) use of antibiotics; Z79.891 Long term (current) use of opiate analgesic; Z79.890 Hormone replacement therapy; Z79.899 Other long term (current) drug therapy; Z87.891 Personal history of nicotine dependence; Z96.642 Presence of left artificial hip joint
CPT/HCPCS: 36415; 70450; 71046; 80048; 80053; 80202; 81001; 82565; 83605; 83735; 83880; 84145; 84484; 84550; 85025; 85610; 85652; 85730; 86140; 87040; 93005; 94760; 96360; 99285

== ENCOUNTER → 2023-11-27 | Outpatient (CLI) | payer MEDICARE, OTHER ==
--- NOTE | 2023-11-30 09:38 | XR ---
EXAMINATION TYPE: XR chest 2V DATE OF EXAM: 11/27/2023 4:13 PM CLINICAL INDICATION: Male, 78 years old with history of R051 ACUTE COUGH; [facility] COMPARISON: Chest radiographs from 07/30/2023 TECHNIQUE: XR chest 2V Frontal view of the chest. FINDINGS: Lungs/Pleura: Prominent interstitial lung markings are seen scattered throughout the lungs. No eviden ce of focal consolidation, pneumothorax or pleural effusion. Pulmonary vascularity: Unremarkable. Heart/mediastinum: Cardiomediastinal silhouette is unremarkable. Musculoskeletal: No acute osseous pathology. Other findings: None Lines/Tubes: IMPRESSION: Chronic changes without acute pulmonary process. No significant change from prior.
== END | disposition home or self-care (01) ==
LOC: RADXRYALE 15:59
PROVIDERS: ATTEND Internal Medicine
DX: R05.1 Acute cough
CPT/HCPCS: 71046